=== PATIENT | female | born 1990 ===

== ENCOUNTER 2017-10-20 16:08 | Inpatient (IN) | payer MEDICAID ==
[2017-10-20 16:41] VITALS: RESP 18; O2SAT 100
--- NOTE | 2017-10-20 18:35 | C.PDOC ---
History Of Present Illness 27 y/o female presents to the ED requesting detox from heroin. Patient admits she uses 20 bags of heroin via IVDA daily. LMP was approximately 2 months ago, patient states she had (+) test at home 3 weeks ago. No care. Otherwise she denies any vaginal bleeding, abdominal pain, urinary frequency, dysuria, hematuria, or incontinence. Time Seen by Provider: 10/20/17 17:29 Chief Complaint (Nursing): Substance Abuse History Per: Patient History/Exam Limitations: no limitations Onset/Duration Of Symptoms: Days Current Symptoms Are (Timing): Still Present Suicide/Self Injury Attempted (Context): None Modifying Factor(s): Other (Heroin) Past Medical History Reviewed: Historical Data, Nursing Documentation, Vital Signs Vital Signs: Last Vital Signs Temp 99.0 F 10/20/17 21:00 Pulse 84 10/20/17 21:00 Resp 18 10/20/17 21:00 BP 126/62 10/20/17 21:00 Pulse Ox 100 10/20/17 21:00 - Medical History Other PMH: Substance abuse - [facility] Procedures PSYCHIA INTERV/EVAL NEC (07/22/14) Family History: States: Unknown Family Hx - Social History Hx Alcohol Use: Yes Hx Substance Use: Yes - Immunization History Hx Tetanus Toxoid Vaccination: No (not sure of last tetanus) Hx Influenza Vaccination: No Hx Pneumococcal Vaccination: No Review Of Systems Constitutional: Negative for: Fever Gastrointestinal: Negative for: Vomiting, Abdominal Pain Genitourinary: Negative for: Dysuria, Frequency, Incontinence, Hematuria, Vaginal Bleeding Psych: Positive for: Other (Heroin abuse). Negative for: Suicidal ideation, Withdrawal Physical Exam - Physical Exam Appears: Well, Non-toxic, No Acute Distress Skin: Normal Color, Warm, No Rash Head: Atraumatic, Normacephalic Eye(s): bilateral: Normal Inspection Oral Mucosa: Moist Neck: Supple Chest: Symmetrical Cardiovascular: Rhythm Regular, No Murmur Respiratory: Normal Breath Sounds, No Rales, No Rhonchi, No Wheezing Gastrointestinal/Abdominal: Soft, Tenderness (mild suprapubic tenderness), No Guarding, No Rebound Back: No CVA Tenderness Extremity: Normal ROM, No Calf Tenderness, No Swelling, Other (Multiple scars to dorsum of bilateral hands from IV drug use) Pulses: Left Radial: Normal, Right Radial: Normal Neurological/Psych: Oriented x3, Normal Speech ED Course And Treatment - Laboratory Results Result Diagrams: 10/20/17 18:38 10/20/17 18:38 O2 Sat by Pulse Oximetry: 100 (RA) Pulse Ox Interpretation: Normal Medical Decision Making Medical Decision Making: Impression: 27 y/o female requesting heroin detox Plan: --CMP --CBC --Beta-HCG --Urine drug screen --Alcohol serum --Urinalysis Crisis will evaluate and arrange bed placement. 2003 pt is medically cleared; pt does have a uti; urine culture collected and first dose of macrobid given. recommend macrobid 100 mg po bid x 7 days for uti. Disposition Discussed With Dr.: Demond Pacheco Doctor Will See Patient In The: Hospital - Disposition Disposition: HOSPITALIZED Disposition Time: 20:06 Condition: GOOD - Clinical Impression Clinical Impression: Opioid use disorder, severe, dependence, , Urinary tract infection affecting care of mother in first trimester, antepartum - PA / DISK GRINDER / Resident Statement MD/DO has reviewed & agrees with the documentation as recorded. - Scribe Statement The provider has reviewed the documentation as recorded by the Scribe (Vangie Stahl) All medical record entries made by the Scribe were at my direction and personally dictated by me. I have reviewed the chart and agree that the record accurately reflects my personal performance of the history, physical exam, medical decision making, and the department course for this patient. I have also personally directed, reviewed, and agree with the discharge instructions and disposition.
[2017-10-20 18:43] LABS: BASO % 0.5 % (0.0-2.0); EOS # 0.1 K/uL (0.0-0.7); EOS % 1.7 % (0.0-4.0); HEMOGLOBIN 9.5 g/dL (11.0-16.0); LYMPH # 2.9 K/uL (1.0-4.3); LYMPH % 34.2 % (20.0-40.0); MEAN CELL VOLUME 65.2 fL (81.0-99.0); MEAN CORPUSCULAR HEMOGLOBIN 20.6 pg (27.0-31.0); MEAN CORPUSCULAR HGB CONC 31.5 g/dL (33.0-37.0); MEAN PLATELET VOLUME 9.5 fL (7.2-11.7); MONO # 0.6 K/uL (0.0-0.8); MONO % 6.8 % (0.0-10.0); NEUT # 4.9 K/uL (1.8-7.0); NEUT % 56.8 % (50.0-75.0); NRBC % 0.2 % (0.0-2.0); RBC 4.61 Mil/uL (3.80-5.20); RED CELL DISTRIBUTION WIDTH 20.4 % (11.5-14.5); WHITE BLOOD COUNT 8.6 K/uL (4.8-10.8)
[2017-10-20 18:48] LABS: SQUAMOUS EPITHIAL 14 /hpf (0-5); URINE BACTERIA MOD (<OCC); URINE BILIRUBIN NEGATIVE (NEGATIVE); URINE BLOOD NEGATIVE (NEGATIVE); URINE CLARITY Hazy (Clear); URINE COLOR Yellow (YELLOW); URINE GLUCOSE (UA) NORMAL (Normal); URINE LEUKOCYTE ESTERASE 2+ Leu/uL (Negative); URINE PROTEIN NEGATIVE (NEGATIVE); URINE UROBILINOGEN NORMAL mg/dL (0.2-1.0)
[2017-10-20 19:09] LABS: ALB/GLOB RATIO 1.1 (1.0-2.1); ALBUMIN 4.1 g/dL (3.5-5.0); ALT/SGPT 27 U/L (9-52); AST/SGOT 23 U/L (14-36); BLOOD UREA NITROGEN 8 mg/dL (7-17); GFR AFRICAN-AMERICAN > 60; GFR NON-AFRICAN AMERICAN > 60
[2017-10-20 19:29] LABS: BARBITURATES, UR NEGATIVE (NEGATIVE); BENZODIAZEPINES, UR NEGATIVE (NEGATIVE); PHENCYCLIDINE, UR NEGATIVE (NEGATIVE)
[2017-10-20 19:30] LABS: OPIATES, UR POSITIVE (NEGATIVE)
--- NOTE | 2017-10-20 20:37 | PCM.BM ---
Treatment Plan Problems - Problems identified on initial assessmt potiential for opiate withdrawal Date Initiated: 10/20/17 Time Initiated: 20:36 Assessment reference: NA Status: Active Treatment assets and liabiliti Patient Assests: ADL independent, physically healthy, good support system Patient Liabilities: substance abuse - Milieu Protocol Maintain good personal hygiene: daily Encourage regular showers, daily Remind patient to perform daily oral care, daily Assist patient to perform ADL's Maintain personal safety: every shift Educate patient to report safety concerns to staff, every shift Monitor environment for contraband/sharps Medication safety: Monitor for expected outcome, potential side effects: every shift, Assess barriers to learning: every shift, Assess readiness for medication education: every shift
[2017-10-21] MEDS ORDERED: Prenatal Multivit/Folic Acid/Iron Tab PO SCH (10:00)
--- NOTE | 2017-10-21 12:54 | PCM.PSYCH ---
Initial Psychiatric Evaluation - Initial Psychiatric Evaluation Type of Admission: Voluntary Legal Status: Capacity Current Medications: Active Medications Generic Name Dose Route Start Last Admin Trade Name Freq PRN Reason Stop Dose Admin Acetaminophen 325 mg 10/20/17 21:40 10/20/17 23:27 Tylenol 325mg Tab PO 325 mg Q4H PRN Administration Pain, moderate (4-7) Diphenhydramine HCl 25 mg 10/20/17 21:40 10/20/17 23:27 Benadryl PO 25 mg Q6 PRN Administration insomnia, anxiety Ferrous Sulfate 325 mg 10/21/17 14:00 Feosol PO TID CANDICE Lorazepam 1 mg 10/21/17 10:30 10/21/17 10:46 Ativan PO 10/25/17 10:29 1 mg Q6H CANDICE Administration Taper Nitrofurantoin Macrocrystals 100 mg 10/21/17 07:30 10/21/17 08:30 Macrobid PO 100 mg Q12H CANDICE Administration Protocol Multivit/Folic Acid/Iron 1 tab 10/21/17 10:00 10/21/17 09:51 PO 1 tab DAILY CANDICE Administration Quetiapine Fumarate 100 mg 10/21/17 22:00 Seroquel PO 10/24/17 22:01 [facility] Past Psychiatric History - Past Psychiatric History Pertinent Medical Hx (Current Medical&Sleep Prob, Allergies): Allergies Allergy/AdvReac Type Severity Reaction Status Date / Time No Known Allergies Allergy Verified 02/28/16 22:26 No Known Home Med 10/20/17
[2017-10-21 14:48] LABS: HEPATITIS B SURFACE AG Negative (NEGATIVE)
[2017-10-21 14:53] LABS: HEPATITIS A IGM NEGATIVE (NEGATIVE); HEPATITIS B CORE AB NEGATIVE (NEGATIVE)
[2017-10-21 15:05] LABS: HEPATITIS C ANTIBODY NEGATIVE (NEGATIVE)
[2017-10-21 15:27] LABS: HIV 1&2 ANTIBODY NEGATIVE (NEGATIVE)
[2017-10-21 17:11] VITALS: BP 116/83; PULSE 86; TEMP 99.2
--- NOTE | 2017-10-22 09:35 | PCM.PYCHDC ---
Mental Status Examination - Mental Status Examination Orientation: Person Discharge Summary - Discharge Note Laboratory Data: Abnormal Lab Results 10/21/17 10/21/17 10/21/17 13:55 13:55 13:55 25-OH Vitamin D Total 36.9 TSH 3rd Generation 0.85 Hepatitis A IgM Ab Negative Hep Bs Antigen Negative Hep B Core IgM Ab Negative Hepatitis C Antibody Negative HIV 1&2 Antibody Screen Negative Consultations:: List each consultation separately and include: 1. Reason for request. 2. Findings. 3. Follow-up Summary of Hospital Course include:: 1. Description of specific treatment plan utilized for patients during their course of treatmen. 2. Summarize the time- course for resolution of acute symptoms and/or regressed behaviors. 3. Describe issues identified and worked on during hospitalization. 4. Describe medication utilized. 5. Describe medical problems identified and treated. 6. Reassessment of suicide risk - Final Diagnosis (DSM 5) Condition upon Discharge: GOOD Disposition: AGAINST MEDICAL ADVICE
== END 2017-10-21 17:35 | disposition left against medical advice (07) | DRG 781 ==
LOC: C.ER 16:08 → C.9E 20:07 → C.7D 20:32
PROVIDERS: ADMIT Psychiatry & Neurology Psychiatry; ATTEND Psychiatry & Neurology Psychiatry
DX: O23.41 Unspecified infection of urinary tract in pregnancy, first trimester (principal); F11.20 Opioid dependence, uncomplicated; F14.10 Cocaine abuse, uncomplicated

== ENCOUNTER 2018-05-13 11:47 | Inpatient (IN) | payer MEDICAID ==
[2018-05-13 13:02] VITALS: BMI 32.5
[2018-05-13] MEDS ORDERED: Lactated Ringer's 1,000 ML IV ONE (13:11)
[2018-05-13 13:49] LABS: BASO % 0.3 % (0.0-2.0); EOS % 0.1 % (0.0-4.0); HEMOGLOBIN 9.8 g/dL (11.0-16.0); LYMPH # 2.5 K/uL (1.0-4.3); LYMPH % 24.7 % (20.0-40.0); MEAN CORPUSCULAR HEMOGLOBIN 20.7 pg (27.0-31.0); MEAN CORPUSCULAR HGB CONC 30.3 g/dL (33.0-37.0); MEAN PLATELET VOLUME 11.1 fL (7.2-11.7); MONO # 0.4 K/uL (0.0-0.8); MONO % 4.1 % (0.0-10.0); NEUT # 7.2 K/uL (1.8-7.0); NEUT % 70.8 % (50.0-75.0); RBC 4.72 Mil/uL (3.80-5.20); RED CELL DISTRIBUTION WIDTH 16.8 % (11.5-14.5); WHITE BLOOD COUNT 10.2 K/uL (4.8-10.8)
[2018-05-13 13:52] LABS: MEAN CELL VOLUME 68.2 fL (81.0-99.0)
[2018-05-13 14:01] LABS: URINE BILIRUBIN SMALL (NEGATIVE); URINE CLARITY Clear (Clear); URINE COLOR YELLOW (YELLOW); URINE GLUCOSE (UA) NEGATIVE (Normal)
[2018-05-13 14:02] LABS: URINE BLOOD SMALL (NEGATIVE)
[2018-05-13 14:03] LABS: BLOOD UREA NITROGEN 14 mg/dL (7-17); CALCIUM 9.4 mg/dl (8.6-10.4); GFR NON-AFRICAN AMERICAN > 60
[2018-05-13 14:03] LABS: PH,URINE 5.5 (5.0-8.0); SQUAMOUS EPITHIAL 2 /hpf (0-5); URINE BACTERIA OCC (<OCC); URINE LEUKOCYTE ESTERASE NEGATIVE Leu/uL (Negative); URINE PROTEIN 30 mg/dL (NEGATIVE); URINE UROBILINOGEN 0.2 mg/dL (0.2-1.0)
[2018-05-13 14:07] LABS: BARBITURATES, UR NEGATIVE (NEGATIVE); BENZODIAZEPINES, UR NEGATIVE (NEGATIVE); PHENCYCLIDINE, UR NEGATIVE (NEGATIVE)
--- NOTE | 2018-05-13 14:17 | OBHP ---
Datetime: 05/13/2018 13:51 IP Adm Impression: Term, intrauterine IP Admit Plan: Admit to unit Admit Comment, IP Provider: 28 yo at 38.5 weeks based on 18.2 week US OSWALDO: 05/22/18 presents with complaint of rupture of membranes. (-) Contractions (-) vaginal bleeding (+) movements. POb: TOP x 2; D_C PGYN: LMP PMHx: denies PSHX: D_C x 2 ALL: NKDA SHx: (+) IVDA abuser on Methadone 40mg per clinic. Last dose 4 days ago (+) heroin use this AM. (+ ) crack/cocaine use FHx: denies A/P: 28yo at 38.5wks - ROM 1) Admit to L_D 2) VSS 3) IVF @125cc/r 4) IVDA - Psych consultation for methadone dosing 5) Peds made aware of IVDA in 6) NPC labs drawn/UTOX 7) Bedside US for EFW 8) For cervidil 9) Continue to monitor Pelvic Type - PN: Adequate Abdomen - PN: Normal General - PN: Normal FHR - Baseline A Provider: 110 Amniotic Fluid Color, Provider: Clear Membranes, Provider: Ruptured Comments, ACOG Physical Exam: Abd: gravid Pool Provider: Positive Nitrazine Provider: Positive EGA AdmitDate IP: 40.1 Vital Signs Provider: Reviewed; Within Normal Limits IP Chief Complaint: Suspected ruptured membranes NICHD Variability Prov Fetus A: Moderate 6-25bpm NICHD Accel Fetus A IP Provider: 15X15 NICHD Decel Fetus A IP Provider: None
[2018-05-13 14:38] LABS: HEPATITIS B SURFACE AG Negative (NEGATIVE)
--- NOTE | 2018-05-13 14:50 | US ---
Indication: estimate wt at bedside Comparison: None available Technique: Real-time ultrasound was performed through the pelvis. Findings: There is a single living fetus in cephalic presentation. Amniotic fluid volume appears within normal limits. Anterior placenta. The placenta does not appear previa. Please note it was difficult to assess the cervix. There are no adnexal masses or cysts evident. The study was performed for emergent evaluation, and the whole anatomic survey of the fetus was not performed. Measurements and calculations: Fetus has a composite sonographic age of 36 weeks 6 days. This calculation is based on the biparietal diameter, head circumference, abdominal circumference, and femur length. Estimated heart rate 124.9 beats per min. Estimated weight 2802 g. Biophysical profile: movements 2/2 breathing 2/2 tone 2/2 Amniotic fluid 2/2 Total score impression: 8 Impression: Single living fetus with a composite sonographic age of 36 weeks 6 days. Estimated heart rate 124.9 beats per min. Biophysical profile of 8 out of 8.
--- NOTE | 2018-05-13 15:05 | OBADHP ---
Datetime: 05/13/2018 13:51 Admit Comment, IP Provider: 28 yo at 38.5 weeks based on 18.2 week US OSWALDO: 05/22/18 presents with complaint of rupture of membranes. (-) Contractions (-) vaginal bleeding (+) movements. 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 Last dose 4 days ago (+) heroin use this AM. (+ ) crack/cocaine use FHx: denies A/P: 28yo at 38.5wks - ROM 1) Admit to L_D 2) VSS 3) IVF @125cc/r 4) IVDA - Psych consultation for methadone dosing 5) Peds made aware of IVDA in 6) NPC labs drawn/UTOX 7) Bedside US for EFW 8) For cervidil 9) Continue to monitor Pelvic Type - PN: Adequate Abdomen - PN: Normal General - PN: Normal FHR - Baseline A Provider: 110 Amniotic Fluid Color, Provider: Clear Membranes, Provider: Ruptured Comments, ACOG Physical Exam: Abd: gravid Pool Provider: Positive Nitrazine Provider: Positive Vital Signs Provider: Reviewed; Within Normal Limits IP Chief Complaint: Suspected ruptured membranes NICHD Variability Prov Fetus A: Moderate 6-25bpm NICHD Accel Fetus A IP Provider: 15X15 FHR Category Provider Fetus A: Category I NICHD Decel Fetus A IP Provider: None Dilatation, Provider: 2 Effacement, Provider: 40 Station, Provider: -2 EGA AdmitDate IP: 40.1 IP Adm Impression: Term, intrauterine IP Admit Plan: Admit to unit
[2018-05-13 15:07] LABS: OPIATES, UR POSITIVE (NEGATIVE)
--- NOTE | 2018-05-13 15:11 | OBPN ---
Datetime: 05/13/2018 15:04 IP Progress Impression: Rupture of membranes IP Procedures: Sterile Vag Exam IP Progress Plan: Induction Membranes, Provider: Ruptured FHR - Baseline A Provider: 110 IP Progress Note Comment: A/P: 28yo at 38.5 weeks - ROM 1) VSS 2) s/p psych consultation- awaiting recommendations regarding methadone 3) Cervidil placed at 3pm 4) Epidural PRN 5) Continue present management Vital Signs Provider: Reviewed; Within Normal Limits NICHD Accel Fetus A IP Provider: 15X15 FHR Category Provider Fetus A: Category I NICHD Variability Prov Fetus A: Moderate 6-25bpm Dilatation, Provider: 2 Effacement, Provider: 40 Station, Provider: -2 NICHD Decel Fetus A IP Provider: None Datetime: 05/13/2018 13:51 Pool Provider: Positive Nitrazine Provider: Positive Amniotic Fluid Color, Provider: Clear
[2018-05-13] MEDS: Lactated Ringer's 1,000 ML IV SCH (21:15)
--- NOTE | 2018-05-13 23:07 | PCM.PSYCH ---
Initial Psychiatric Evaluation - Initial Psychiatric Evaluation Type of Admission: Voluntary Legal Status: Capacity Chief Complaint (in patient's own words): I am have withdrawal symptoms from heroin. History of Present Illness and Precipitating Events: Psychiatry consulted for 28yo female , 39 weeks , with PMH of IVDA presenting for labor and delivery. Patient denies nausea, vomiting, diarrhea, generalized myalgia. She reports using 2 bags of heroin today. She says it normally takes her a whole day to feel withdrawal symptoms. She is interested in stopping her opiate use, she feels guilty about it due to concerns about it affecting her unborn child, and she does feel the urge to use heroin when she wakes. She has been going to methadone clinics, but she states the methadone doses she receives are not enough to tide her over to the next dose, so she feels she must use heroin. Patient has been feeling anxious and overwhelmed about her . She says she feels helpless, in addition to her guilt. She has low energy and is sleeping more than usual. Patient denies auditory/visual hallucinations and thoughts of harming herself or others. Drugs: Normally uses 3-4 bags of heroin daily, uses cocaine intermittently (last use was 1 bag, 3 days ago), denies alcohol use, she currently smokes 2 cigarettes daily (cut down from her use prior to ) Housing: patient is homeless. 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 She had been following up at local methadone clinics ([facility] 03/19 and [facility] 05/04), but has not felt the methadone is enough. her last methadone doses at each clinic were 105mg and 40mg, respectively. PMH: denies Family hx: denies allergies: NKDA Meds: vitamins Current Medications: Active Medications Generic Name Dose Route Start Last Admin Trade Name Freq PRN Reason Stop Dose Admin Lactated Ringer's 1,000 mls @ 125 mls/hr 05/13/18 13:15 Lactated Ringer's IV .Q8H CANDICE Past Psychiatric History - Past Psychiatric History Previous Treatment History: None Pertinent Medical Hx (Current Medical&Sleep Prob, Allergies): Allergies Allergy/AdvReac Type Severity Reaction Status Date / Time FISH Allergy RASH Verified 01/18/18 20:36 Nitrofurantoin Macrocrystals [Macrobid] 100 mg PO BID #9 cap 01/18/18 Review of Systems - Review of Systems All systems: reviewed and no additional remarkable complaints except - Psychiatric Psychiatric: Anxiety, Irritability. absent: Suicidal Ideation Mental Status Examination - Personal Presentation Personal Presentation: Looks stated age - Affect Affect: Constricted - Motor Activity Motor Activity: Calm - Reliability in Providing Information Reliability in Providing Information: Good - Speech Speech: Organized - Mood Mood: Anxious - Formal Thought Process Formal Thought Process: No Impairment - Obsessions/Compulsions Obsessions: No Compulsions: No - Cognitive Functions Orientation: Person, Place, Situation, Time Sensorium: Alert Attention/Concentration: Attentive Abstract Thinking: [place] Estimate of Intelligence: Below average Judgement: Imparied, as evidence by: Poor judgement, Intact, as evidence by: Insight regarding need for hospitalization - Risk Risk: Diminished functioning - Strength & Assets Inventory Strength & Assets Inventory: Family support DSM 5 DX - DSM 5 DSM 5 Diagnosis: Opioid use disorder severe Opioid withdrawal - Recommended/Plan of Treatment Treatment Recommendations and Plan of Treatment: Opioid use disorder severe Opioid withdrawal Psychoeducation Supportive therapy Methadone taper -start when patient manifest withdrawal symptoms Patient psychiatrically stable and cleared - Smoking Cessation Smoking Cessation Initiated: No
[2018-05-14] MEDS: Lactated Ringer's 1,000 ML IV SCH (01:30)
[2018-05-14] MEDS ORDERED: Fentanyl/Bupivacaine HCl 250 ML EPI ONE (01:47)
--- NOTE | 2018-05-14 03:36 | OBPN ---
Datetime: 05/14/2018 03:09 IP Procedures: Sterile Vag Exam IP Progress Plan: Induction FHR - Baseline A Provider: 120 IP Progress Note Comment: A/P: 28yo at 38.5wks - SROM 11am(05/13) 1) VSS 2) s/p epidural 3) s/p cervidil for pitocin 4) will start Pen G for prolonged rupture at 5Am 5) Continue current management Vital Signs Provider: Reviewed; Within Normal Limits NICHD Accel Fetus A IP Provider: 15X15 FHR Category Provider Fetus A: Category I NICHD Variability Prov Fetus A: Moderate 6-25bpm Dilatation, Provider: 9 Effacement, Provider: 80 Station, Provider: -2 NICHD Decel Fetus A IP Provider: None Datetime: 05/13/2018 20:06 IP Progress Impression: Rupture of membranes
[2018-05-14] MEDS ORDERED: Penicillin G 5 Million Unit Vial IVPB ONE (05:50)
[2018-05-14] MEDS ORDERED: Sodium Citrate/Citric Acid 15 ml Sol PO ONE (05:57)
[2018-05-14] MEDS ORDERED: cefOXitin IV 2 gm in Dextrose 2 GM/50 ML BAG IVPB ONE (05:58)
--- NOTE | 2018-05-14 06:09 | OBPN ---
Datetime: 05/14/2018 05:41 IP Procedures: Scalp Electrode; Sterile Vag Exam IP Progress Plan: Induction FHR - Baseline A Provider: 125 IP Progress Note Comment: A/P: 28yo at 38.6wks - SROM 11am CATII tracing- Pt placed on L lateral side with O2 via facemask and O2 bolus IFM placed at 5:40am Pt counseled for section at this time secondary to late decelerations despite resuscitati on. Risks/benefits of the procedure discussed with the patient. Pt agrees to the procedure. Prep for OR. Dr. Hoffman aware and en route. NICHD Accel Fetus A IP Provider: 15X15 FHR Category Provider Fetus A: Category II NICHD Variability Prov Fetus A: Moderate 6-25bpm Dilatation, Provider: 6 Effacement, Provider: 90 Station, Provider: -1 NICHD Decel Fetus A IP Provider: Early; Late
[2018-05-14] MEDS ORDERED: cefOXitin IV 2 gm in Dextrose 0 GM/0 ML BAG IVPB ONE (06:18)
[2018-05-14] MEDS ORDERED: Sodium Citrate/Citric Acid 15 ml Sol ONE (06:18)
[2018-05-14] MEDS ORDERED: Lidocaine 2% MPF (5 ml) Inj ONE (06:43)
[2018-05-14] MEDS ORDERED: Lidocaine Hydrochloride 5 ML INJ ONE (08:24)
--- NOTE | 2018-05-14 10:08 | OBDS ---
LABOR SUMMARY EDC: 05/12/2018 00:00 No. Babies in Womb: 1 Attempted: No Labor Anesthesia: None LABOR INFORMATION Cervical Ripening Agents: Cervidil (Annotations: 10 mg vaginally) Steroids Given: None Reason Steroids Not Administered: Not Applicable MEMBRANES Membranes Rupture Method: Spontaneous Rupture of Membranes: 05/13/2018 11:30 Amniotic Fluid Color: Clear Amniotic Fluid Amount: Moderate Amniotic Fluid Odor: Normal VAGINAL DELIVERY Episiotomy: None Laceration Extension: Second Degree Laceration Type: Perineal Laceration Repair: Yes Initial Vag Sponge Count: 10 Final Vag Sponge Count: 20 Sponge Count Correct: Yes; Vaginal Sweep Performed Sharps Count Correct: Yes BABY A INFORMATION Infant Delivery Date/Time: 05/14/2018 08:12 Method of Delivery: Vaginal Born in Route : No : N/A Forceps: N/A Vacuum Extraction: N/A Shoulder Dystocia : No SHOULDER DYSTOCIA BABY A Infant Delivery Date/Time: 05/14/2018 08:12 PRESENTATION/POSITION BABY A Presentation: Cephalic Cephalic Presentation: Vertex Vertex Position: Left Occipital Posterior Breech Presentation: N/A PLACENTA INFORMATION BABY A Placenta Delivery Time : 05/14/2018 08:14 Placenta Method of Delivery: Spontaneous Placenta Status: Delivered SCORES BABY A Heart Rate 1 min: >100 bpm Resp Effort 1 min: Good Cry Reflex Irritability 1 min: Cough or Sneeze or Pulls Away Muscle Tone 1 min: Active Motion Color 1 min: Body [place], Extremities Blue Resuscitation Effort 1 min: Tactile Stimulation Heart Rate 5 min: >100 bpm Resp Effort 5 min: Good Cry Reflex Irritability 5 min: Cough or Sneeze or Pulls Away Muscle Tone 5 min: Active Motion Color 5 min: Body [place], Extremities Blue INFANT INFORMATION BABY A Gestational Age at Delivery: 40.0 Gestational Status: Term Outcome : Liveborn Condition : Stable Sex: Male IDENTIFICATION/MEDS BABY A ID Band Number: [id number] ID Band Location: Left Leg; Left Arm Sensor Number: [id number] Sensor Location : Cord Clamp Vitamin K Given : Not Given WEIGHT/LENGTH BABY A Birthweight (gms): 2745 Infant Length Inches: 20.00 CORD INFORMATION BABY A No. Cord Vessels: 3 Nuchal Cord : N/A Cord Blood Taken: Yes Suction: Mouth; Nose
--- NOTE | 2018-05-14 10:09 | OBDS ---
LABOR SUMMARY EDC: 05/12/2018 00:00 No. Babies in Womb: 1 Attempted: No Labor Anesthesia: None LABOR INFORMATION Cervical Ripening Agents: Cervidil (Annotations: 10 mg vaginally) Steroids Given: None Reason Steroids Not Administered: Not Applicable MEMBRANES Membranes Rupture Method: Spontaneous Membranes Rupture Method: Spontaneous Rupture of Membranes: 05/13/2018 11:30 Rupture of Membranes: 05/13/2018 11:30 Length of Rupture (hrs): 20.70 Length of Rupture (hrs): 20.70 Amniotic Fluid Color: Clear Amniotic Fluid Color: Clear Amniotic Fluid Amount: Moderate Amniotic Fluid Odor: Normal STAGES OF LABOR Stage 3 hrs: 0 Stage 3 min: 2 VAGINAL DELIVERY Episiotomy: None Laceration Extension: Second Degree Laceration Type: Perineal Laceration Repair: Yes Initial Vag Sponge Count: 10 Final Vag Sponge Count: 20 Sponge Count Correct: Yes; Vaginal Sweep Performed Shar[place] Count Correct: Yes BABY A INFORMATION Delivery Date/Time: 05/14/2018 08:12 Method of Delivery: Vaginal Method of Delivery: Vaginal Born in Route : No : N/A Forceps: N/A Vacuum Extraction: N/A Shoulder Dystocia : No SHOULDER DYSTOCIA BABY A Infant Delivery Date/Time: 05/14/2018 08:12 PRESENTATION/POSITION BABY A Presentation: Cephalic Cephalic Presentation: Vertex Vertex Position: Left Occipital Posterior Breech Presentation: N/A PLACENTA INFORMATION BABY A Placenta Delivery Time : 05/14/2018 08:14 Placenta Method of Delivery: Spontaneous Placenta Status: Delivered SCORES BABY A Heart Rate 1 min: >100 bpm Resp Effort 1 min: Good Cry Reflex Irritability 1 min: Cough or Sneeze or Pulls Away Muscle Tone 1 min: Active Motion Color 1 min: Body [place], Extremities Blue Resuscitation Effort 1 min: Tactile Stimulation SCORE 1 MIN: 9 Heart Rate 5 min: >100 bpm Resp Effort 5 min: Good Cry Reflex Irritability 5 min: Cough or Sneeze or Pulls Away Muscle Tone 5 min: Active Motion Color 5 min: Body [place], Extremities Blue SCORE 5 MIN: 9 INFORMATION BABY A Gestational Age at Delivery: 40.0 Gestational Status: Term Outcome : Liveborn Infant Condition : Stable Infant Sex: Male Infant Sex: Male IDENTIFICATION/MEDS BABY A ID Band Number: [id number] ID Band Location: Left Leg; Left Arm Sensor Number: [id number] Sensor Location : Cord Clamp Vitamin K Given : Not Given WEIGHT/LENGTH BABY A Birthweight (gms): 2745 Infant Weight (lb): 6 Infant Weight (oz): 1 Length Inches: 20.00 Infant Length cms: 50.8 CORD INFORMATION BABY A No. Cord Vessels: 3 Nuchal Cord : N/A Cord Blood Taken: Yes Infant Suction: Mouth; Nose
[2018-05-14] MEDS ORDERED: Methadone 40 mg Tab PO ONE (10:45)
[2018-05-14] MEDS ORDERED: Benzocaine/Menthol 20%-0.5% Topical Spray (60 ml) TOP PRN (13:58)
--- NOTE | 2018-05-15 08:49 | OBPPN ---
Datetime: 05/15/2018 08:46 PP Pain Prov: Within normal limits PP Lochia Prov: Normal PP Impression Prov: Normal progression PP Plan Prov: Continue present management PP Progress Note Prov: A/P: s/p PPD#1 - stable, afebrile - + bottle - methadone dependant - needs psych consult to manage dosing, normally 105mg q daily - continue pp mgmt IP PP Procedures: None Vital Signs Provider PP: Reviewed; Within Normal Limits
[2018-05-15 09:33] LABS: BASO % 0.2 % (0.0-2.0); EOS # 0.1 K/uL (0.0-0.7); EOS % 0.5 % (0.0-4.0); LYMPH # 2.9 K/uL (1.0-4.3); LYMPH % 23.7 % (20.0-40.0); MEAN CELL VOLUME 68.4 fL (81.0-99.0); MEAN CORPUSCULAR HEMOGLOBIN 20.7 pg (27.0-31.0); MEAN CORPUSCULAR HGB CONC 30.2 g/dL (33.0-37.0); MEAN PLATELET VOLUME 11.1 fL (7.2-11.7); MONO # 0.8 K/uL (0.0-0.8); MONO % 6.8 % (0.0-10.0); NEUT # 8.3 K/uL (1.8-7.0); NEUT % 68.8 % (50.0-75.0); NRBC % 0.1 % (0.0-2.0); RBC 3.69 Mil/uL (3.80-5.20); WHITE BLOOD COUNT 12.1 K/uL (4.8-10.8)
[2018-05-15 09:39] LABS: HEMOGLOBIN 7.6 g/dL (11.0-16.0)
[2018-05-15 17:26] LABS: EOS # 0.1 K/uL (0.0-0.7); MEAN CELL VOLUME 68.7 fL (81.0-99.0); MONO # 0.7 K/uL (0.0-0.8); WHITE BLOOD COUNT 10.1 K/uL (4.8-10.8)
[2018-05-15 17:34] LABS: BASO % 0.3 % (0.0-2.0); EOS % 0.9 % (0.0-4.0); HEMOGLOBIN 7.1 g/dL (11.0-16.0); LYMPH # 3.4 K/uL (1.0-4.3); LYMPH % 33.6 % (20.0-40.0); MEAN CORPUSCULAR HEMOGLOBIN 20.7 pg (27.0-31.0); MEAN CORPUSCULAR HGB CONC 30.2 g/dL (33.0-37.0); MEAN PLATELET VOLUME 11.8 fL (7.2-11.7); MONO % 6.7 % (0.0-10.0); NEUT # 5.9 K/uL (1.8-7.0); NEUT % 58.5 % (50.0-75.0); NRBC % 0.1 % (0.0-2.0); RBC 3.43 Mil/uL (3.80-5.20); RED CELL DISTRIBUTION WIDTH 17.3 % (11.5-14.5)
[2018-05-16 00:45] LABS: HEMOGLOBIN 7.2 g/dL (11.0-16.0); MEAN CELL VOLUME 68.6 fL (81.0-99.0); MEAN CORPUSCULAR HEMOGLOBIN 20.9 pg (27.0-31.0); MEAN CORPUSCULAR HGB CONC 30.5 g/dL (33.0-37.0); MEAN PLATELET VOLUME 11.3 fL (7.2-11.7); RBC 3.42 Mil/uL (3.80-5.20); RED CELL DISTRIBUTION WIDTH 16.7 % (11.5-14.5)
--- NOTE | 2018-05-16 09:41 | OBHP ---
Datetime: 05/13/2018 13:51 Admit Comment, IP Provider: 28 yo at 38.5 weeks based on 18.2 week US OSWALDO: 05/22/18 presents with complaint of rupture of membranes. (-) Contractions (-) vaginal bleeding (+) movements. 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 Last dose 4 days ago (+) heroin use this AM. (+ ) crack/cocaine use FHx: denies A/P: 28yo at 38.5wks - ROM 1) Admit to L_D 2) VSS 3) IVF @125cc/r 4) IVDA - Psych consultation for methadone dosing 5) Peds made aware of IVDA in 6) NPC labs drawn/UTOX 7) Bedside US for EFW 8) For cervidil 9) Continue to monitor
--- NOTE | 2018-05-16 09:54 | OBDCSUM ---
Datetime: 05/16/2018 09:27 Discharged to, Provider: Home Follow up at, Provider: [facility] Disch Instr Activity: Normal activity; May be up to bathroom; May be up for meals; May Shower Disch Instr Diet: Regular Discharge Instructions, Provider: Routine instructions given Discharge Diagnosis, Provider: Term Delivered Discharge Time: 05/16/2018 12:00 Follow up in weeks, Provider: 6 weeks Disch Activity Restrictions: No sexual activity; Nothing in vagina - [place], tampons, douche Discharge Comment, Provider: Pelvic rest x 6 weeks, can take motrin as needed for pain, f/u with cli rylan in 6 weeks or sooner if develops severe abdominal pain, fevers, foul smelling discharge Discharge Diagnosis Prov Other: Substance abuse in Contraception after Delivery: Undecided
--- NOTE | 2018-05-16 09:54 | OBPPN ---
Datetime: 05/16/2018 07:42 PP Pain Prov: Within normal limits PP Nausea Prov: Denies PP Flatus Prov: Yes PP BM Prov: No PP Breasts Prov: Not Done PP Heart Prov: Normal PP Lungs Prov: Normal PP Abdomen/Uterus Prov: Normal PP Lochia Prov: Not Done PP Vulva/Perineum Prov: Not Done PP CVA Tenderness Prov: Not Done PP Extremities Prov: Normal PP C/S Incision Prov: Not Applicable PP Progress Prov: Not Applicable PP Comments Phys Exam Prov: Gen: AAOx3 Cardiac: RRR no murmurs, rubs, or gallops Pulmonary: CTA b/l, no rhonchi, rales, or wheezing Abdominal: no tenderness to palpation, no guarding, no rebound tenderness, fundal height is 4 fing er breadths below umbilicus Lower extremity: no peripheral edema b/l PP Impression Prov: Normal progression PP Plan Prov: Continue present management; Discharge PP Progress Note Prov: Patient seen and examined at bedside. Per nursing no acute events overnight. She is complaining of pain bilaterally in the right and left lower abdomen, that she rates as an 8/10 , and some discomfort while urinating. She comments that she has taken anything for the pain yet. She has been sleeping well, eating well and ambulating. Her lochia is mild. She has been able to urinate without difficulties and pass gas, but has been unable to have a bowel movement as of this time. She denies headaches, fevers, chills, chest pain, shortness of breath, nausea, vomitting, and diarrhea. Patient is bottle feeding. VSS PE: see above Assesment: Patient is a 28 year old that is status post with second perineal laceration PPD# 2 o f a 40 week gestation period. Plan: Stable, afebrile Pain control: Patient was prescribed Ibuprofen 600mg PO Q8, 30 tabs Anemia: Patient is to continue taking ferrous sulfate 1 tab PO TID 90 tabs, Colace 100mg PO TID Rubella equivocal: MMR vaccine ordered Methadone and cocaine use in : social work aware We will discharge patient home today - pelvic rest x 6 weeks, f/u with clinic in 6 weeks or sooner if develops fevers, severe abominal pain, foul smelling discharge Plan discussed with Dr Molina Abarca OMS-3/ Kylah Sutton DO PGY-2 Vital Signs Provider PP: Reviewed; Within Normal Limits
[2018-05-16] MEDS ORDERED: Measles, Mumps, and Rubella 0.5 ML VIAL SC ONE (10:00)
[2018-05-16 17:34] VITALS: RESP 18; O2SAT 98
[2018-05-16 22:44] VITALS: BP 121/74; PULSE 61; TEMP 97.6
[2018-05-17] MEDS ORDERED: Influenza Vaccine 60 mcg/0.5 mL SYR (4YR UP) IM ONE (12:21)
== END 2018-05-16 18:35 | disposition home or self-care (01) | DRG 373 ==
LOC: C.EROB 11:47 → C.4D 12:45 → C.4M 05-14 10:46
PROVIDERS: ADMIT Obstetrics & Gynecology; ATTEND Obstetrics & Gynecology
PROC: 10E0XZZ Delivery of Products of Conception, External Approach (ICD-10-PCS; principal; 2018-05-14)
PROC: 3E0P7VZ Introduction of Hormone into Female Reproductive, Via Natural or Artificial Opening (ICD-10-PCS; 2018-05-14)
PROC: 0KQM0ZZ Repair Perineum Muscle, Open Approach (ICD-10-PCS; 2018-05-14)
DX: O99.324 Drug use complicating childbirth (principal); F11.23 Opioid dependence with withdrawal; F14.90 Cocaine use, unspecified, uncomplicated; O99.334 Smoking (tobacco) complicating childbirth; O76 Abnormality in fetal heart rate and rhythm complicating labor and delivery; O70.1 Second degree perineal laceration during delivery; F17.210 Nicotine dependence, cigarettes, uncomplicated; F41.9 Anxiety disorder, unspecified; O99.344 Other mental disorders complicating childbirth; Z37.0 Single live birth; Z3A.40 40 weeks gestation of pregnancy; Z59.0 Homelessness